=== PATIENT | male | born 1970 | race Caucasian/White ===

== ENCOUNTER 2018-02-14 06:38 | Observation (INO) | payer BC ==
--- OUTSIDE RECORDS SUMMARY | 2018-02-14 06:40 | XMS REPORT | Continuity of Care Document ---
:1970 Author Organization Interface Problems Problem Status Onset Classification Date Comments Source Date Reported N20.0 - Active [facility] [place] [facility] Medications Medication Details Route Status Patient Ordering Order Source Instructions Provider Date Allergies, Adverse Reactions, Alerts Substance Category Reaction Severity Reaction Status Date Comments Source type Reported Immunizations Immunization Date Given Site Status Last Updated Comments Source Results Order Results Value Reference Date Interpretation Comments Source Name Range Renal Renal CT ABDOMEN WITHOUT IV CONTRAST 04/15 - [facility] /2015 - [facility] CT PELVIS WITHOUT IV CONTRAST [place] Read by: Faith Rae MD Dictated Date/time: 04/15/16 16:30 CLINICAL HISTORY: renal stones . Electronically Signed by: Faith Rae MD 04/15/16 16:32 FINAL REPORT COMPARISON STUDY: None . TECHNIQUE: Sequential axial images were obtained with a multi-detector helical CT without administration of intravenous iodinated contrast material. Oral contrast was not given.The reported DLP in mGy*cm is 700 . The lack of contrast limits detailed evaluation of the abdominal organs. FINDINGS: The visualized lung bases are clear. The non-contrast enhanced images of the liver, spleen, pancreas , gallbladder and adrenals are unremarkable. The kidneys are normal in appearance. There are no renal calculi. No evidence of ureteral calculi are seen. The stomach is unremarkable. The loops of small bowel and loops of colon are unremarkable. The appendix is normal . The bladder is unremarkable. There is no pelvic or abdominal lymphadenopathy. No ascites. No free air. The inguinal regions are unremarkable. The visualized bones are unremarkable. Evidence of prior disc fusion and laminectomies are noted with pedicle screw fixation in the lumbar spine at L4-5 and L5-S1 levels. IMPRESSION: Unremarkable non-contrast abdominal and pelvis CT. Vital Signs Vital Sign Value Date Comments Source Encounters Location Location Encounter Encounter Reason Attending ADM DC Status Source Details Type Number For Provider Date Date Visit Outpatient [id number] JERED 11/30 Rashida [facility] [place] [id number] JERED [facility]/01 [facility] [place] [facility] [id number] JERED 12/14 [facility] [place] [facility] [id number] SHARRONE 12/18 [facility] [place] [facility] [id number] SAMIRA 03/18 [facility] [place] [facility] [id number] SAMIRA 04/08 [facility] [place] [facility] [id number] Samira 04/15 04/16 [facility] [place] [facility] [id number] DEVAN 05/28 [facility] [id number] SHARRONE 06/21 [facility] [place] [facility] [id number] 08/16 [facility] [place] [facility] [id number] DEVAN 09/03 [facility] [place] [facility] [id number] NELIDA WHITING 02/04 [facility] [id number] DEVAN 02/04 [facility] [place] [facility] [id number] DEVAN 02/10 [facility] [place] [facility] [id number] SHAR02/18 [facility] [place] [facility] [id number] SHARRONE 03/30 [facility] [place] [facility] [id number] DEVAN 07/20 [facility] [place] [facility] [id number] SHARRONE 08/25 [facility] [place] [facility] [id number] DEVAN 08/31 [facility] [id number] DEVAN 10/10 [facility] [place] [facility] [id number] DEVAN 01/23 [facility] [place] [facility] [id number] DEVAN 07/20 [facility] Procedures Procedure Code Date Perfomer Comments Source
--- OUTSIDE RECORDS SUMMARY | 2018-02-14 06:41 | XMS REPORT | Summary of Care ---
:1970 Author Organization [facility] [place] Address [address] [id number]- [facility] Encntr_alias(FIN) [id number] Date(s): 04/15/16 - 04/15/16 [facility] [place] [id number] [place] [id number] [place] [address] Discharge Disposition: Home or Self Care Attending Physician: Jaret Yarbrough MD Vital Signs No data available for this section Problem List No data available for this section Allergies, Adverse Reactions, Alerts No data available for this section Medications No data available for this section Results No data available for this section Immunizations No data available for this section Procedures No data available for this section Social History No data available for this section Assessment and Plan No data available for this section
[2018-02-14 07:38] LABS: Absolute Lymphocytes (CBC) 2.2 K/uL (0.7-4.9); Absolute Monocytes 0.4 K/uL (0.1-1.3); Absolute Neutrophil 2.8 K/uL (1.8-8.0); Basophils % 1.3 % (0-1.3); Eosinophils % 1.6 % (0-4.4); Hematocrit 45.1 % (39.6-49.0); Lymphocytes % 38.8 % (15.3-44.8); MCH 29.3 pg (27.0-35.0); MCV 87.2 fL (80-100); MPV 11.2 fL (7.6-11.3); Monocytes % 7.4 % (3.3-12.3); RBC Red Blood Cell Count 5.17 M/uL (4.33-5.43)
[2018-02-14 07:48] LABS: Protime INR 0.96
--- NOTE | 2018-02-14 07:54 | RAD REPORT ---
EXAM DESCRIPTION: CT - Head Brain Wo Cont - 02/14/2018 7:36 am CLINICAL HISTORY: Right leg numbness COMPARISON: None. TECHNIQUE: Computed axial tomography of the head was obtained. IV contrast was not requested. All CT scans are performed using dose optimization technique as appropriate and may include automated exposure control or mA/KV adjustment according to patient size. FINDINGS: An intracranial bleed is not seen . The ventricles are normal in caliber. No extra-axial fluid collection is noted. Fluid within the sinuses/ mastoids is not seen. IMPRESSION: No acute intracranial abnormality is seen. If patient's symptoms persist MRI of the bra in would be recommended.
[2018-02-14 07:55] LABS: ALT/SGPT 32 U/L (12-78); AST/SGOT 25 U/L (15-37); Alkaline Phosphatase 56 U/L (45-117); BUN Blood Urea Nitrogen 25 mg/dL (7-18); Bicarbonate 29 mmol/L (21-32); Bilirubin Direct < 0.1 mg/dL (0-0.2); Bilirubin Total 0.3 mg/dL (0.2-1.0); CKMB Creatine Kinase MB 2.2 ng/mL (0.3-3.6); Creatine Phosphokinase 278 U/L (39-308); Glucose Level 90 mg/dL (74-106); Magnesium 2.5 mg/dL (1.8-2.4); NT PRO-BNP 21 pg/mL (<125); Potassium 4.5 mmol/L (3.5-5.1); Protein, Total 7.4 g/dL (6.4-8.2); Sodium Level 140 mmol/L (136-145)
--- NOTE | 2018-02-14 08:10 | EDPHYS ---
Physician Documentation [facility] Name: Andrea Ortiz Age: 47 yrs Sex: Male : 1970 Arrival Date: 02/14/2018 Time: 06:43 Bed 13 Private MD: Filipe Domínguez M ED Physician Dylon Sutton HPI: 02/14 07:33 This 47 yrs old Male presents to ER via Wheelchair with complaints of snw Numbness Of Arm, Numbness. 07:33 The patient or guardian complains of pain, numbness. The complaints affect the right snw shoulder and up right lateral neck, down back of right arm. Context: The problem was sustained at home, resulted from unknown cause. Onset: The symptoms/episode began/occurred suddenly, 5 day(s) ago, and became persistent. Treatment prior to arrival includes: no previous treatment. Modifying factors: The symptoms are alleviated by nothing. Associated signs and symptoms: Pertinent positives: numbness, Pertinent negatives: fever, weakness. Severity of symptoms: At their worst the symptoms were moderate, in the emergency department the symptoms are unchanged. The patient has not experienced similar symptoms in the past. The patient has not recently seen a physician, and does not have an established primary care provider. takes medications for GERD, HTN, Hyperlipidemia (stopped taking and went more holistic). Historical: - Allergies: 07:04 No Known Allergies; bs1 - Home Meds: 07:04 testosterone shots , biweekly [Active]; citalopram 40 mg tab 1 tab once daily [Active]; bs1 fenofibrate 50 mg Oral cap 1 cap once daily [Active]; Fish Oil 183.3 mg-75 mg -91.6 mg-306 mg Oral cap [Active]; losartan 100 mg Oral tab 1 tab once daily [Active]; Lyrica 75 mg Oral [Active]; Multiple Vitamins Oral tab [Active]; omeprazole 40 mg Oral cpDR 1 cap once daily [Active]; Melatonin Oral [Active]; zyxal [Active]; D3-2000 oral oral [Active]; adapta [Active]; - PMHx: 07:04 hiatial hernia; Hypertension; High Cholesterol; GERD; Arthritis; Depression; bs1 - PSHx: 07:04 inguinal hernia repair; Tonsillectomy; bs1 - Immunization history:: Adult Immunizations up to date. - Social history:: Smoking status: Patient uses tobacco products, denies chronic smoking, but will smoke occasionally. - Ebola Screening: : Patient negative for fever greater than or equal to 101.5 degrees Fahrenheit, and additional compatible Ebola Virus Disease symptoms Patient denies exposure to infectious person. ROS: 07:22 Constitutional: Negative for fever, chills, and weight loss, Eyes: Negative for injury, snw pain, redness, and discharge, ENT: Negative for injury, pain, and discharge, Cardiovascular: Negative for chest pain, palpitations, and edema, Respiratory: Negative for shortness of breath, cough, wheezing, and pleuritic chest pain, Abdomen/GI: Negative for abdominal pain, nausea, vomiting, diarrhea, and constipation, Back: Negative for injury and pain, : Negative for injury, bleeding, discharge, and swelling, MS/Extremity: Negative for injury and deformity, Skin: Negative for injury, rash, and discoloration. 07:22 Neck: Positive for tenderness, of the right posterior aspect of neck. 07:22 Neuro: Positive for numbness, pain behind right shoulder and down back of right arm intermittently with numbness since Tuesday and then today with increased numbness to right leg, full power.. Exam: 07:22 Constitutional: This is a well developed, well nourished patient who is awake, alert, snw and in no acute distress. Head/Face: Normocephalic, atraumatic. Eyes: Pupils equal round and reactive to light, extra-ocular motions intact. Lids and lashes normal. Conjunctiva and sclera are non-icteric and not injected. Cornea within normal limits. Periorbital areas with no swelling, redness, or edema. ENT: Nares patent. No nasal discharge, no septal abnormalities noted. Tympanic membranes are normal and external auditory canals are clear. Oropharynx with no redness, swelling, or masses, exudates, or evidence of obstruction, uvula midline. Mucous membranes moist. Neck: Trachea midline, no thyromegaly or masses palpated, and no cervical lymphadenopathy. Supple, full range of motion without nuchal rigidity, or vertebral point tenderness. No Meningismus. Chest/axilla: Normal chest wall appearance and motion. Nontender with no deformity. No lesions are appreciated. Cardiovascular: Regular rate and rhythm with a normal S1 and S2. No gallops, murmurs, or rubs. Normal PMI, no JVD. No pulse deficits. Respiratory: Lungs have equal breath sounds bilaterally, clear to auscultation and percussion. No rales, rhonchi or wheezes noted. No increased work of breathing, no retractions or nasal flaring. Abdomen/GI: Soft, non-tender, with normal bowel sounds. No distension or tympany. No guarding or rebound. No evidence of tenderness throughout. Back: No spinal tenderness. No costovertebral tenderness. Full range of motion. Skin: Warm, dry with normal turgor. Normal color with no rashes, no lesions, and no evidence of cellulitis. MS/ Extremity: Pulses equal, no cyanosis. Neurovascular intact. Full, normal range of motion. Neuro: Awake and alert, GCS 15, oriented to person, place, time, and situation. Cranial nerves II-XII grossly intact. Motor strength 5/5 in all extremities. Sensory grossly intact. Cerebellar exam normal. Normal gait. Psych: Awake, alert, with orientation to person, place and time. Behavior, mood, and affect are within normal limits. Vital Signs: 06:52 BP 153 / 91; Pulse 66; Resp 16; Temp 98.3; Pulse Ox 100% on R/A; Weight 95.25 kg (R); bs1 Height 5 ft. 9 in. (175.26 cm); Pain 7/10; 08:00 BP 145 / 91; Pulse 65; Resp 17; Pulse Ox 100% on R/A; Pain 7/10; rb1 09:00 BP 132 / 74; Pulse 60; Resp 16; Pulse Ox 100% ; rb1 10:00 BP 134 / 78; Pulse 60; Resp 19; Pulse Ox 99% on R/A; Pain 5/10; rb1 11:00 rb1 06:52 Body Mass Index 31.01 (95.25 kg, 175.26 cm) bs1 11:00 Pt. is in MRI rb1 NIH Stroke Scale Scores: 07:00 NIHSS Score: 0 bs1 07:22 NIHSS Score: 0 snw MDM: 06:56 Patient medically screened. snw 07:32 Data reviewed: vital signs, nurses notes. Data interpreted: Pulse oximetry: on room air snw is 100 %. Interpretation: normal. Counseling: I had a detailed discussion with the patient and/or guardian regarding: the historical points, exam findings, and any diagnostic results supporting the discharge/admit diagnosis, the presence of at least one elevated blood pressure reading (>120/80) during this emergency department visit, lab results, radiology results, the need for further work-up and treatment in the hospital. ED course: pt is not candidate for TPA, outside window, resolution and exacerbation of symptoms. 08:09 Physician consultation: Lionel Ruffin DO was called at 07:45, was contacted at 07:45, snw regarding admission, to the telemetry unit. 02/14 06:45 Order name: Basic Metabolic Panel; Complete Time: 08:00 snw 02/14 06:45 Order name: CBC with Diff; Complete Time: 08:00 snw 02/14 06:45 Order name: Ckmb; Complete Time: 08:00 snw 02/14 06:45 Order name: CPK; Complete Time: 08:00 snw 02/14 06:45 Order name: LFT's; Complete Time: 08:00 snw 02/14 06:45 Order name: Magnesium; Complete Time: 08:00 snw 02/14 06:45 Order name: NT PRO-BNP; Complete Time: 08:00 snw 02/14 06:45 Order name: PT-INR; Complete Time: 08:00 snw 02/14 06:45 Order name: Ptt, Activated; Complete Time: 08:00 snw 02/14 06:45 Order name: Troponin (emerg Dept Use Only); Complete Time: 08:00 snw 02/14 06:45 Order name: XRAY Chest (1 view); Complete Time: 09:41 snw 02/14 10:28 Order name: Urine Dipstick--Ancillary (enter results) bd 02/14 10:39 Order name: Urine Dipstick-Ancillary; Complete Time: 10:41 EDMS 02/14 06:45 Order name: EKG; Complete Time: 06:46 snw 02/14 06:45 Order name: Cardiac monitoring; Complete Time: 07:30 snw 02/14 06:45 Order name: EKG - Nurse/Tech; Complete Time: 09:28 snw 02/14 07:07 Order name: CT Head Brain wo Cont; Complete Time: 08:00 snw 02/14 10:53 Order name: US; Complete Time: 10:53 EDMS 02/14 11:17 Order name: US; Complete Time: 11:18 EDMS 02/14 06:45 Order name: IV Saline Lock; Complete Time: 07:30 snw 02/14 06:45 Order name: Labs collected and sent; Complete Time: 07:30 snw 02/14 06:45 Order name: O2 Per Protocol; Complete Time: 07:30 snw 02/14 06:45 Order name: O2 Sat Monitoring; Complete Time: 07:30 snw 02/14 06:45 Order name: Urine Dipstick-Ancillary (obtain specimen); Complete Time: 10:24 snw Administered Medications: 06:46 CANCELLED (Duplicate Order): Lasix 40 mg IVP once snw 06:46 CANCELLED (Duplicate Order): Albuterol - atroVENT (3:1) (2.5 mg - 0.5 mg) 3 ml snw Nebulizer once 06:47 CANCELLED (Duplicate Order): Nitroglycerin Ointment 2 % 1 inches Transdermal once snw 06:47 CANCELLED (Duplicate Order): Aspirin Chewable Tablet 324 mg PO once; 81 mg tablets x 4 snw 06:47 CANCELLED (Duplicate Order): morphine 4 mg IVP once snw 08:15 Drug: Aspirin Chewable Tablet 324 mg Route: PO; rb1 08:40 Follow up: Response: No adverse reaction rb1 09:10 Drug: NS 0.9% 1000 ml Route: IV; Rate: 1 bolus; Site: left antecubital; rb1 10:12 Follow up: IV Status: Completed infusion rb1 10:33 Drug: Ativan 1 mg Route: IVP; Site: left antecubital; mb3 10:36 Follow up: Pt. was given the medication and was taken to MRI. rb1 Disposition: 02/14/18 08:09 Hospitalization ordered by Lionel Ruffin for Inpatient Admission. Preliminary diagnosis are Renal insufficiency, Paresthesia of skin. - Bed requested for Telemetry/MedSurg (Inpatient). - Status is Inpatient Admission. rb1 - Condition is Stable. - Problem is new. - Symptoms are unchanged. UTI on Admission? No NIH Stroke Scale - NIH Stroke Score Date: 02/14/2018 Time: 07:00 Total Score = 0 1a. Level of Consciousness (LOC) - 0(Alert) 1b. Level of Consciousness (LOC) (Year \T\ Age) - 0(Both) 1c. LOC Commands (Open \T\ Closes Eyes/Pumper Gauger Apprentice) - 0(Both) 2. Best Gaze (Lateral Gaze Paresis) - 0(Normal) 3. Visual Field Loss - 0(No visual loss) 4. Facial Palsy - 0(Normal) 5a. Left Arm: Motor (10-second hold) - 0(No drift) 5b. Right Arm: Motor (10-second hold) - 0(No drift) 6a. Left Leg: Motor (5-second hold - always test supine) - 0(No drift) 6b. Right Leg: Motor (5-second hold - always test supine) - 0(No drift) 7. Limb Ataxia (finger/nose \T\ heel/campa - test with eyes open) - 0(Absent) 8. Sensory Loss (pinprick arms/legs/face) - 0(Normal) 9. Best Language: Aphasia (description/naming/reading) - 0(No aphasia) 10. Dysarthria (speech clarity - read or repeat words) - 0(Normal) 11. Extinction and Inattention (visual/tactile/auditory/spatial/personal) - 0(No abnormality) Initials: bs1 NIH Stroke Scale - NIH Stroke Score Date: 02/14/2018 Time: 07:22 Total Score = 0 1a. Level of Consciousness (LOC) - 0(Alert) 1b. Level of Consciousness (LOC) (Year \T\ Age) - 0(Both) 1c. LOC Commands (Open \T\ Closes Eyes/Pumper Gauger Apprentice) - 0(Both) 2. Best Gaze (Lateral Gaze Paresis) - 0(Normal) 3. Visual Field Loss - 0(No visual loss) 4. Facial Palsy - 0(Normal) 5a. Left Arm: Motor (10-second hold) - 0(No drift) 5b. Right Arm: Motor (10-second hold) - 0(No drift) 6a. Left Leg: Motor (5-second hold - always test supine) - 0(No drift) 6b. Right Leg: Motor (5-second hold - always test supine) - 0(No drift) 7. Limb Ataxia (finger/nose \T\ heel/campa - test with eyes open) - 0(Absent) 8. Sensory Loss (pinprick arms/legs/face) - 0(Normal) 9. Best Language: Aphasia (description/naming/reading) - 0(No aphasia) 10. Dysarthria (speech clarity - read or repeat words) - 0(Normal) 11. Extinction and Inattention (visual/tactile/auditory/spatial/personal) - 0(No abnormality) Initials: snw Signatures: Dispatcher [employer] EDMS Cyndy Wilcox Cha Matthews, Mary Villarreal RN, ENVIRONMENTAL PROGRAM MANAGER-C ENVIRONMENTAL PROGRAM MANAGER-Csnw Lexus Szymanski, RN RN rb1 Dylon Sutton MD MD Stella Webster RN RN bs1 Los Martini RN RN mb3 Corrections: (The following items were deleted from the chart) 06:46 06:45 Lasix 40 mg IVP once ordered. snw snw 06:46 06:45 Albuterol - atroVENT (3:1) (2.5 mg - 0.5 mg) 3 ml Nebulizer once ordered. snw snw 06:47 06:45 Nitroglycerin Ointment 2 % 1 inches Transdermal once ordered. snw snw 06:47 06:45 Aspirin Chewable Tablet 324 mg PO once; 81 mg tablets x 4 ordered. snw snw 06:47 06:45 morphine 4 mg IVP once ordered. snw snw 07:37 06:45 Gann ordered. snw snw 07:37 06:45 Misc. Order ordered. snw snw 07:37 06:45 BiPap ([employer] Only)+[id number] ordered. EDVT EDMS 10:01 08:09 Hospitalization Ordered by Lionel Ruffin DO for Inpatient Admission. bd Preliminary diagnosis is Renal insufficiency; Paresthesia of skin. Bed requested for Telemetry/MedSurg (Inpatient). Status is Inpatient Admission. Condition is Stable. Problem is new. Symptoms are unchanged. UTI on Admission? No. snw 10:01 10:02/14/2018 08:09 Hospitalization Ordered by Lionel Ruffin DO for dw Inpatient Admission. Preliminary diagnosis is Renal insufficiency; Paresthesia of skin. Bed requested for Telemetry/MedSurg (Inpatient). Status is Inpatient Admission. Condition is Stable. Problem is new. Symptoms are unchanged. UTI on Admission? No. bd 12:05 10:01 02/14/2018 08:09 Hospitalization Ordered by Lionel Ruffin DO for rb1 Inpatient Admission. Preliminary diagnosis is Renal insufficiency; Paresthesia of skin. Bed requested for Telemetry/MedSurg (Inpatient). Status is Inpatient Admission. Condition is Stable. Problem is new. Symptoms are unchanged. UTI on Admission? No. dw
--- NOTE | 2018-02-14 08:10 | ER ---
Nurse's Notes [facility] Name: Andrea Ortiz Age: 47 yrs Sex: Male : 1970 Arrival Date: 02/14/2018 Time: 06:43 Bed 13 Private MD: Filipe Domínguez M Diagnosis: Renal insufficiency;Paresthesia of skin Presentation: 02/14 06:52 Presenting complaint: Patient states: "I have been having pain behind my right shoulder bs1 blade since last Tuesday, about an hour ago my right leg went numb and I couldn't really walk on it." Reports tingling to right hand. Transition of care: patient was not received from another setting of care. Onset of symptoms was February 10, 2018. Risk Assessment: Do you want to hurt yourself or someone else? Patient reports no desire to harm self or others. Initial Sepsis Screen: Does the patient meet any 2 criteria? No. Patient's initial sepsis screen is negative. Does the patient have a suspected source of infection? No. Patient's initial sepsis screen is negative. Care prior to arrival: None. 06:52 Method Of Arrival: Wheelchair bs1 06:52 Acuity: AYANNA 3 bs1 Triage Assessment: 06:55 General: Appears in no apparent distress. uncomfortable, Behavior is cooperative, bs1 anxious. Pain: Complains of pain in right shoulder blade. Neuro: Level of Consciousness is awake, alert, obeys commands, Oriented to person, place, time, situation, Appropriate for age Nurse Coordinator are equal bilaterally Moves all extremities. Full function Speech is normal, Facial symmetry appears normal, Pupils are PERRLA, Intact reports some tingling to right hand. Historical: - Allergies: 07:04 No Known Allergies; bs1 - Home Meds: 07:04 testosterone shots , biweekly [Active]; citalopram 40 mg tab 1 tab once daily [Active]; bs1 fenofibrate 50 mg Oral cap 1 cap once daily [Active]; Fish Oil 183.3 mg-75 mg -91.6 mg-306 mg Oral cap [Active]; losartan 100 mg Oral tab 1 tab once daily [Active]; Lyrica 75 mg Oral [Active]; Multiple Vitamins Oral tab [Active]; omeprazole 40 mg Oral cpDR 1 cap once daily [Active]; Melatonin Oral [Active]; zyxal [Active]; D3-2000 oral oral [Active]; adapta [Active]; - PMHx: 07:04 hiatial hernia; Hypertension; High Cholesterol; GERD; Arthritis; Depression; bs1 - PSHx: 07:04 inguinal hernia repair; Tonsillectomy; bs1 - Immunization history:: Adult Immunizations up to date. - Social history:: Smoking status: Patient uses tobacco products, denies chronic smoking, but will smoke occasionally. - Ebola Screening: : Patient negative for fever greater than or equal to 101.5 degrees Fahrenheit, and additional compatible Ebola Virus Disease symptoms Patient denies exposure to infectious person. Screenin:05 Abuse screen: Denies threats or abuse. Denies injuries from another. Nutritional bs1 screening: No deficits noted. Tuberculosis screening: No symptoms or risk factors identified. Fall Risk None identified. Assessment: 07:00 General: Appears in no apparent distress. comfortable, Behavior is calm, cooperative, rb1 Denies fever. Pain: Complains of pain in left posterior aspect of neck Pain radiates to right shoulder Pain currently is 7 out of 10 on a pain scale. Neuro: Level of Consciousness is awake, alert, obeys commands, Oriented to person, place, time, situation, Nurse Coordinator are equal bilaterally Moves all extremities. Gait is steady, Speech is normal, Facial symmetry appears normal, Pupils are PERRLA. Cardiovascular: Capillary refill < 3 seconds is brisk in bilateral fingers. Respiratory: Airway is patent Respiratory effort is even, unlabored, Respiratory pattern is regular, symmetrical. GI: No signs and/or symptoms were reported involving the gastrointestinal system. : No signs and/or symptoms were reported regarding the genitourinary system. Derm: Skin is pink, warm \\T\\ dry. Musculoskeletal: Range of motion: intact in all extremities. 07:08 Reassessment: Report given to ALESHA Alberts. Informed Mary PISANO that nurse did the stroke bs1 assessment. No abnormalities noted. No slurred speech. 07:13 Reassessment: Patients PCP is Ken beltran [facility] at [address] bs1 08:00 Reassessment: Patient appears in no apparent distress at this time. No changes from rb1 previously documented assessment. at bedside. 09:00 Reassessment: Patient appears in no apparent distress at this time. Patient and/or rb1 family updated on plan of care and expected duration. Pain level reassessed. Patient is alert, oriented x 3, equal unlabored respirations, skin warm/dry/pink. 10:00 Reassessment: Patient appears in no apparent distress at this time. Patient and/or rb1 family updated on plan of care and expected duration. Pain level reassessed. Patient is alert, oriented x 3, equal unlabored respirations, skin warm/dry/pink. US is at bedside. 10:15 Reassessment: Tried to call report but was left on hold. Spoke to Priti, Unit rb1 secretary [employer]. 10:20 Reassessment: Tried to call report but was left on hold, spoke to Priti, Unit rb1 secretary board of commissioners. 10:25 Reassessment: Gave report to ALESHA Ramirez. Information from [facility] was given, all questions rb1 asked and answered. 10:38 Reassessment: Pt. went to MRI from the ED; 4 th floor notified. rb1 11:30 Reassessment: Pt. is still in MRI. at bedside. rb1 11:58 Reassessment: Patient appears in no apparent distress at this time. Pt. is back from [facility] MRI. Pt. will be transferred to the floor. Vital Signs: 06:52 BP 153 / 91; Pulse 66; Resp 16; Temp 98.3; Pulse Ox 100% on R/A; Weight 95.25 kg (R); bs1 Height 5 ft. 9 in. (175.26 cm); Pain 7/10; 08:00 BP 145 / 91; Pulse 65; Resp 17; Pulse Ox 100% on R/A; Pain 7/10; rb1 09:00 BP 132 / 74; Pulse 60; Resp 16; Pulse Ox 100% ; rb1 10:00 BP 134 / 78; Pulse 60; Resp 19; Pulse Ox 99% on R/A; Pain 5/10; rb1 11:00 rb1 06:52 Body Mass Index 31.01 (95.25 kg, 175.26 cm) bs1 11:00 Pt. is in MRI [facility] NIH Stroke Scale Scores: 07:00 NIHSS Score: 0 bs1 07:22 NIHSS Score: 0 [facility] ED Course: 06:43 Patient arrived in ED. es 06:43 Filipe Domínguez MD is Private Physician. es 06:46 Mary Hester FNP-C [facility]. snw 06:46 Dylon Sutton MD is Attending Physician. snw 06:52 Stella Webster, ALESHA is Primary Nurse. bs1 06:55 Triage completed. bs1 07:05 X-ray completed. Portable x-ray completed in exam room. Patient tolerated procedure jb2 well. 07:05 Patient has correct armband on for positive identification. Bed in low position. Call bs1 light in reach. Side rails up X 1. Pulse ox on. NIBP on. 07:05 Arm band placed on right wrist. rb1 07:[address] sw 07:13 XRAY Chest (1 view) In Process Unspecified. EDMS 07:15 Inserted saline lock: 22 gauge in left antecubital area, using aseptic technique. Blood rb1 collected. 07:30 Lexus Szymanski, RN is Primary Nurse. rb1 07:[address] via stretcher. sw 07:34 CT completed. sw 07:36 Patient moved back from CT. sw 07:36 CT Head Brain wo Cont In Process Unspecified. EDMS 08:05 Lionel Ruffin DO is Hospitalizing Provider. snw 09:18 EKG done, by charge preparation technician. reviewed by Mary ESPINOSA. at1 11:24 Patient moved to MRI via wheelchair. lc 11:56 Patient moved back from MRI. lc 12:01 No provider procedures requiring assistance completed. rb1 12:01 Patient admitted, IV remains in place. rb1 Administered Medications: 06:46 CANCELLED (Duplicate Order): Lasix 40 mg IVP once snw 06:46 CANCELLED (Duplicate Order): Albuterol - atroVENT (3:1) (2.5 mg - 0.5 mg) 3 ml snw Nebulizer once 06:47 CANCELLED (Duplicate Order): Nitroglycerin Ointment 2 % 1 inches Transdermal once snw 06:47 CANCELLED (Duplicate Order): Aspirin Chewable Tablet 324 mg PO once; 81 mg tablets x 4 snw 06:47 CANCELLED (Duplicate Order): morphine 4 mg IVP once snw 08:15 Drug: Aspirin Chewable Tablet 324 mg Route: PO; rb1 08:40 Follow up: Response: No adverse reaction rb1 09:10 Drug: NS 0.9% 1000 ml Route: IV; Rate: 1 bolus; Site: left antecubital; rb1 10:12 Follow up: IV Status: Completed infusion rb1 10:33 Drug: Ativan 1 mg Route: IVP; Site: left antecubital; mb3 10:36 Follow up: Pt. was given the medication and was taken to MRI. rb1 Intake: Outcome: 08:09 Decision to Hospitalize by Provider. snw 12:01 Admitted to Tele accompanied by tech, family with patient, via wheelchair, room 411, rb1 with chart, Report called to ALESHA Ramirez 12:01 Condition: stable 12:01 Instructed on the need for admit. 12:01 Patient left the ED. rb1 NIH Stroke Scale - NIH Stroke Score Date: 02/14/2018 Time: 07:00 Total Score = 0 1a. Level of Consciousness (LOC) - 0(Alert) 1b. Level of Consciousness (LOC) (Year \\T\\ Age) - 0(Both) 1c. LOC Commands (Open \\T\\ Closes Eyes/Manager Call Center) - 0(Both) 2. Best Gaze (Lateral Gaze Paresis) - 0(Normal) 3. Visual Field Loss - 0(No visual loss) 4. Facial Palsy - 0(Normal) 5a. Left Arm: Motor (10-second hold) - 0(No drift) 5b. Right Arm: Motor (10-second hold) - 0(No drift) 6a. Left Leg: Motor (5-second hold - always test supine) - 0(No drift) 6b. Right Leg: Motor (5-second hold - always test supine) - 0(No drift) 7. Limb Ataxia (finger/nose \\T\\ heel/campa - test with eyes open) - 0(Absent) 8. Sensory Loss (pinprick arms/legs/face) - 0(Normal) 9. Best Language: Aphasia (description/naming/reading) - 0(No aphasia) 10. Dysarthria (speech clarity - read or repeat words) - 0(Normal) 11. Extinction and Inattention (visual/tactile/auditory/spatial/personal) - 0(No abnormality) Initials: bs1 NIH Stroke Scale - NIH Stroke Score Date: 02/14/2018 Time: 07:22 Total Score = 0 1a. Level of Consciousness (LOC) - 0(Alert) 1b. Level of Consciousness (LOC) (Year \\T\\ Age) - 0(Both) 1c. LOC Commands (Open \\T\\ Closes Eyes/Manager Call Center) - 0(Both) 2. Best Gaze (Lateral Gaze Paresis) - 0(Normal) 3. Visual Field Loss - 0(No visual loss) 4. Facial Palsy - 0(Normal) 5a. Left Arm: Motor (10-second hold) - 0(No drift) 5b. Right Arm: Motor (10-second hold) - 0(No drift) 6a. Left Leg: Motor (5-second hold - always test supine) - 0(No drift) 6b. Right Leg: Motor (5-second hold - always test supine) - 0(No drift) 7. Limb Ataxia (finger/nose \\T\\ heel/campa - test with eyes open) - 0(Absent) 8. Sensory Loss (pinprick arms/legs/face) - 0(Normal) 9. Best Language: Aphasia (description/naming/reading) - 0(No aphasia) 10. Dysarthria (speech clarity - read or repeat words) - 0(Normal) 11. Extinction and Inattention (visual/tactile/auditory/spatial/personal) - 0(No abnormality) Initials: snw Signatures: Dispatcher [employer] EDMS Mary Hester, COTTON EXPERT-C COTTON EXPERT-Csnw Lindsey Keith Jesse jb2 Zahra Alberto Amanda, plant protection superintendent EKG Tat1 Cinthya Gannon Rebecca, RN RN rb1 Stella Webster RN RN bs1 Los Martini RN RN mb3 Corrections: (The following items were deleted from the chart) 07:06 06:52 Presenting complaint: Patient states: "I have been having pain behind my bs1 right shoulder blade since last Tuesday, about an hour ago my right leg went numb and I couldn't really walk on it." bs1 12:05 12:05 Patient left the ED. rb1 rb1
[2018-02-14] MEDS ORDERED: ASPIRIN 81 MG CHEWABLE TABLET ONE (08:14)
[2018-02-14] MEDS ORDERED: ONDANSETRON 4 MG/2 ML VIAL IV PRN (08:47)
[2018-02-14] MEDS ORDERED: ACETAMINOPHEN 650MG/RECT SUPP PR PRN (08:47)
[2018-02-14] MEDS ORDERED: ACETAMINOPHEN 500 MG TAB PO PRN (08:47)
[2018-02-14] MEDS ORDERED: LORazepam 2 MG/ML VIAL IV PRN (08:47)
[2018-02-14] MEDS: CITALOPRAM 10 MG TABLET PO SCH ×2 (09:00→12:35)
[2018-02-14] MEDS: PREGABALIN 50 MG CAP PO SCH ×3 (09:00→21:19)
[2018-02-14] MEDS ORDERED: NA CHLORIDE 0.9% 1,000 ML ONE (09:10)
--- NOTE | 2018-02-14 09:38 | RAD REPORT ---
EXAM DESCRIPTION: Young Single View02/14/2018 7:13 am CLINICAL HISTORY: Shortness of breath COMPARISON: August 2017 FINDINGS: The lungs appear clear of acute infiltrate. The heart is normal size IMPRESSION: No acute abnormalities displayed
[2018-02-14] MEDS ORDERED: LORazepam 2 MG/ML VIAL ONE (10:33)
[2018-02-14 10:38] LABS: Urine Blood TRACE (NEG); Urine Glucose NEGATIVE (NEG); Urine Protein NEGATIVE (NEG); Urine pH 5.5 (5.0-7.0)
--- NOTE | 2018-02-14 10:52 | RAD REPORT ---
EXAM DESCRIPTION: US - Renal Ultrasound-Complete - 02/14/2018 10:13 am CLINICAL HISTORY: Renal insufficiency COMPARISON: None. FINDINGS: The right kidney measures 11.5 x 6.6 x 4.9 cm. The left kidney measures 11.7 x 5.6 x 4.7 cm. Cortical thickness is normal. Both kidneys show an increase in cortical echogenicity that can be seen with medical renal disease. No hydronephrosis or suspicious renal mass. A few punctate echogenic foci in each renal hilum noted. These are probably areas of echogenic fat rather than nonshadowing s tones. No bladder wall thickening or mass. No intraluminal stone or mass. IMPRESSION: No hydronephrosis or suspicious renal mass. Increased renal cortical echogenicity suspicious for medical renal disease.
--- NOTE | 2018-02-14 11:15 | RAD REPORT ---
EXAM DESCRIPTION: TORRES - ERIC - 02/14/2018 10:14 am CLINICAL HISTORY: Hypertension, right-sided paresthesia, CVA symptoms COMPARISON: None. TECHNIQUE: Real-time sonographic evaluation of both carotid systems was performed. Grayscale and Dop pler interrogation was performed with waveform tracing bilaterally. FINDINGS: Normal high resistance waveforms are noted in both external carotid arteries. The common c arotid arteries and internal carotid arteries show normal low resistance waveforms. Bilateral carotid bulb plaquing changes are present. On visual inspection no significant degree of kirsty lauri narrowing seen. No dissection identified. Peak systolic and end diastolic velocity values and t he ICA/CCA ratios are in the non-hemodynamically significant range. Common carotid artery velocity values are symmetric at 74 cm/second. Right ICA velocity range from 46 -54 cm/second. Left internal carotid velocity value range from 39-66 cm/second. ICA/CCA ratios are no rmal at 0.7 on the right and 0.9 on the left. Antegrade flow seen in both vertebral arteries. Velocity values and ratios were recorded and are retained in the patient's imaging records. IMPRESSION: No significant atherosclerotic changes noted. No evidence of a hemodynamically significant stenosis.
--- NOTE | 2018-02-14 12:14 | EKG ---
Test Date: 2018-02-14 Test Time: 07:57:04 Slubber Runner: FAWN MEASUREMENT RESULTS: Intervals: Rate: 65 DE: 154 QRSD: 110 QT: 392 QTc: 407 [place]: P: 49 DE: 154 QRS: 6 T: 25 INTERPRETIVE STATEMENTS: Normal sinus rhythm Normal ECG Compared to ECG 08/25/2017 16:26:39 No significant changes Electronically Signed On 02-14-18 12:11:48 CDT by Austen Bowen
--- NOTE | 2018-02-14 12:32 | RAD REPORT ---
EXAM DESCRIPTION: MRI - Stroke Protocol - 02/14/2018 11:56 am CLINICAL HISTORY: Right sided numbness since Tuesday COMPARISON: Head CT February 14, 2018 TECHNIQUE: Axial, sagittal and coronal magnetic resonance images of the brain were obtained. Magneti c resonance angiography of the head and neck was performed. Source images were reviewed and reconstr ucted at 360 degrees rotation. FINDINGS: A 6 millimeter area of high signal on T1 weighted sequences is present within the quadrige lauri cistern compatible with a lipoma. No additional abnormal signal within the brain is seen. An ex tra-axial fluid collection is not noted. Diffusion weighted/ADC mapping does not reveal evidence of an acute infarction. Fluid within the sinuses/mastoids is not seen. . The common, internal and external carotid arteries do not demonstrate a significant stenosis. The avery tebral arteries are unremarkable. The visualized anterior cerebral, middle cerebral, posterior cerebral, basilar and distal internal c arotid arteries do not demonstrate a significant stenosis. An aneurysm is not seen IMPRESSION: No acute intracranial abnormality is seen. Unremarkable MRA head and neck
[2018-02-14] MEDS: ENOXAPARIN 40 MG/0.4 ML SQ SCH (12:36)
[2018-02-14] MEDS: NA CHLORIDE 0.9% 1,000 ML IV SCH ×2 (12:37→19:04)
[2018-02-14] MEDS: HYDROCODONE/APAP 7.5/325 MG TAB PO PRN (12:50)
[2018-02-14] MEDS: TRAMADOL HCL 50 MG TAB PO PRN (14:17)
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
[2018-02-14 15:09] LABS: Thyroid Stimulating Hormone 1.59 uIU/mL (0.36-3.74)
--- NOTE | 2018-02-14 15:53 | P.HP ---
Certification for Inpatient Patient admitted to: Observation With expected LOS: <2 Midnights Patient will require the following post-hospital care: None Practitioner: I am a practitioner with admitting privileges, knowledge of patient current condition, hospital course, and medical plan of care. Services: Services provided to patient in accordance with Admission requirements found in Title 42 Section 412.3 of the Code of Federal Regulations Patient History Date of Service: 02/14/18 Primary Care Provider: Dr. Domínguez Reason for admission: Right upper and lower extremity paresthesias. History of Present Illness: 47 yo CM presented to the ER with right upper and lower ext. weakness and numbness. This all started on Tuesday when he noted pain to the right arm and neck region. This would radiate to the right scapula. 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 He was doing a lot of pushing and lifting last week. His condition worsened. Patient denied any headaches, dizziness, chest pain or shortness of breath. Symptoms worsened so he came to the emergency room for evaluation. In the ER he was evaluated. Some numbness to the upper and lower right extremities were noted. He also reported some weakness. Initial CT of the head was unremarkable. Creatinine was slightly elevated. He was admitted for further evaluation. Patient with acute, hyperlipidemia, GERD with hiatal hernia, RLS, Depression. When I saw the patient his weakness had improved. No chest pain, SOB, or dizziness was noted. He reports a significant medical history of back surgery. Allergies No Known Allergies Allergy (Unverified 08/25/17 18:53) Home medications list reviewed: Yes - Past Medical/Surgical History Has patient received pneumonia vaccine in the past: No Diabetic: No -: HTN -: GERD with Hiatal Hernia -: RLS -: Depression with anxiety -: Back surgery to L spine -: Tonsillectomy -: Left inguinal hernia Psychosocial/ Personal History: He is . 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 He has children - Family History Mother -: Cancer (Lung cancer) Father -: Cancer (Throat and lung cancer) - Social History Smoking Status: Never smoker Alcohol use: No CD- Drugs: No Caffeine use: Yes Place of Residence: Home Review of Systems General: Weakness, As per HPI Eyes: Unremarkable ENT: Unremarkable Respiratory: Unremarkable Cardiovascular: Unremarkable Gastrointestinal: Unremarkable Genitourinary: Unremarkable Musculoskeletal: As per HPI Integumentary: As per HPI Neurological: Weakness, Numbness, As per HPI Lymphatics: Unremarkable Physical Examination - Vital Signs Temperature: 97.3 F Blood Pressure: 127/82 Pulse: 66 Respirations: 18 Pulse Ox (%): 100 - Physical Exam General: Alert, In no apparent distress, Oriented x3, Cooperative HEENT: Atraumatic, Normocephalic, PERRLA, Mucous membr. moist/pink, EOMI Neck: Supple, No Thyromegaly Respiratory: Clear to auscultation bilaterally, Normal air movement Cardiovascular: Normal pulses, Regular rate/rhythm Gastrointestinal: Normal bowel sounds, Soft and benign, Non-distended, No tenderness, No masses, No rebound, No guarding Musculoskeletal: No erythema, No tenderness, No warmth Integumentary: No erythema, No warmth, No cyanosis Neurological: Normal speech, Cranial nerves 3-12 intact, Normal affect, Abnormal strength (Slight weakness to the right upper ext in comparison to the left. Some numbness noted as well. ) - Studies Laboratory Data (last 24 hrs) 02/14/18 07:15: PT 11.3, INR 0.96, APTT 33.2 02/14/18 07:15: WBC 5.6, Hgb 15.1, Hct 45.1, Plt Count 273 02/14/18 07:15: Sodium 140, Potassium 4.5, BUN 25 H, Creatinine 1.70 H, Glucose 90, Magnesium 2.5 H, Total Bilirubin 0.3, AST 25, ALT 32, Alkaline Phosphatase 56 Assessment and Plan - Problems (Diagnosis) (1) Weakness Current Visit: Yes Status: Acute Plan: Will need to assess for TIA. Will discuss with Neurology. Suspect radiculopathy to the C spine. Will order Stroke MRI/MRA, Carotid doppler, ECHO and MRI of C spine. Will continue with Stroke protocol medication. Lovenox, lipitor, and ASA started. (2) Paresthesia Current Visit: Yes Status: Acute Plan: To the Upper and lower ext. noted. Continue as above (3) Radiculopathy Current Visit: Yes Status: Acute Plan: Will order C spine MRI. Will discuss with Neurology (4) HTN (hypertension) Current Visit: Yes Status: Chronic Plan: Hold BP medication at this time. Will monitor. Qualifiers: Hypertension type: essential hypertension Qualified Code(s): I10 - Essential (primary) hypertension (5) Hiatal hernia with GERD Current Visit: Yes Status: Chronic Plan: Continue with medication. (6) Depression with anxiety Current Visit: Yes Status: Chronic Plan: Continue with medication (7) RLS (restless legs syndrome) Current Visit: Yes Status: Chronic Plan: Continue with medication (8) Chronic renal disease Current Visit: Yes Status: Suspected Plan: Will need to evaluate for CRD due to his HTN. Will check renal US Qualifiers: Chronic kidney disease stage: stage 2 (mild) Qualified Code(s): N18.2 - Chronic kidney disease, stage 2 (mild) Discharge Plan: Home Plan to discharge in: 24 Hours - Advance Directives Does patient have a Living Will: No Does patient have a Durable POA for Healthcare: No - Code Status/Comfort Care Code Status Assessed: Yes Time Spent Managing Pts Care (In Minutes): 55
[2018-02-14 16:13] VITALS: BMI 31.0
--- NOTE | 2018-02-14 17:04 | RAD REPORT ---
EXAM DESCRIPTION: MRI - C Spine Wo Cont - 02/14/2018 4:45 pm CLINICAL HISTORY: Right arm numbness since Tuesday. Right arm radiculopathy COMPARISON: None TECHNIQUE: Magnetic resonance imaging of the cervical spine was obtained with coronal and sagittal r econstruction FINDINGS: C2-3, C3-4 and C4-5 demonstrate no significant abnormality A 7 x 5 x 8 centimeter cc by AP by trans right paracentral disc herniation is present at C5-6 brian sing the spinal cord. Small disc bulge is present at C6-7. Small osteophytes are seen. Thecal sac measures millimeters 8 mm . Mild narrowing of the right neural foramina is seen. Minimal disc bulge is present at C7-T1 There is an equivocal tiny area of increased signal within the right anterior aspect of the spinal co rd at C5-6 which may represent a tiny area of myelomalacia IMPRESSION: Moderate right paracentral disc herniation C5-6 Spondylosis C6-7 resulting in mild central spinal stenosis
[2018-02-14 17:31] LABS: CKMB Creatine Kinase MB 2.2 ng/mL (0.3-3.6)
[2018-02-14] MEDS ORDERED: CITALOPRAM 10 MG TABLET PO SCH (21:00)
[2018-02-14] MEDS ORDERED: ATORVASTATIN 40 MG TAB PO SCH (21:00)
[2018-02-15 00:55] LABS: CKMB Creatine Kinase MB 2.2 ng/mL (0.3-3.6)
[2018-02-15] MEDS: HYDROCODONE/APAP 7.5/325 MG TAB PO PRN ×2 (02:39→10:59)
[2018-02-15] MEDS: NA CHLORIDE 0.9% 1,000 ML IV SCH (06:14)
[2018-02-15] MEDS ORDERED: PANTOPRAZOLE 40MG TABLET PO SCH (06:30)
[2018-02-15 06:34] LABS: Absolute Lymphocytes (CBC) 2.1 K/uL (0.7-4.9); Absolute Monocytes 0.5 K/uL (0.1-1.3); Absolute Neutrophil 4.4 K/uL (1.8-8.0); Basophils % 0.9 % (0-1.3); Eosinophils % 1.2 % (0-4.4); Hematocrit 41.7 % (39.6-49.0); Lymphocytes % 29.6 % (15.3-44.8); MCH 29.8 pg (27.0-35.0); MCV 87.2 fL (80-100); MPV 10.7 fL (7.6-11.3); Monocytes % 6.9 % (3.3-12.3); RBC Red Blood Cell Count 4.78 M/uL (4.33-5.43)
[2018-02-15 06:46] LABS: Magnesium 2.3 mg/dL (1.8-2.4); Potassium 4.3 mmol/L (3.5-5.1)
[2018-02-15] MEDS: TRAMADOL HCL 50 MG TAB PO PRN (08:53)
[2018-02-15] MEDS: PREGABALIN 50 MG CAP PO SCH (08:54)
[2018-02-15] MEDS: ENOXAPARIN 40 MG/0.4 ML SQ SCH (08:54)
[2018-02-15] MEDS ORDERED: ASPIRIN EC 81 MG TAB PO SCH (09:00)
[2018-02-15 09:10] VITALS: O2SAT 94
--- NOTE | 2018-02-15 11:13 | P.DS ---
Admission Date: 02/14/18 Discharge Date: 02/15/18 Primary Care Provider: Dr. Domínguez Disposition: ROUTINE DISCHARGE Discharge Condition: GOOD Reason for Admission: Right upper and lower extremity paresthesias. Consultations: Neurology-Dr. Major Procedures: C-spine MRI: COMPARISON: None TECHNIQUE: Magnetic resonance imaging of the cervical spine was obtained with coronal and sagittal reconstruction FINDINGS: C2-3, C3-4 and C4-5 demonstrate no significant abnormality A 7 x 5 x 8 centimeter cc by AP by trans right paracentral disc herniation is present at C5-6 compressing the spinal cord. Small disc bulge is present at C6-7. Small osteophytes are seen. Thecal sac measures millimeters 8 mm. Mild narrowing of the right neural foramina is seen. Minimal disc bulge is present at C7-T1 There is an equivocal tiny area of increased signal within the right anterior aspect of the spinal cord at C5-6 which may represent a tiny area of myelomalacia IMPRESSION: Moderate right paracentral disc herniation C5-6 Spondylosis C6-7 resulting in mild central spinal stenosis MRI brain: COMPARISON: Head CT February 14, 2018 TECHNIQUE: Axial, sagittal and coronal magnetic resonance images of the brain were obtained. Magnetic resonance angiography of the head and neck was performed. Source images were reviewed and reconstructed at 360 degrees rotation. FINDINGS: A 6 millimeter area of high signal on T1 weighted sequences is present within the quadrigeminal cistern compatible with a lipoma. No additional abnormal signal within the brain is seen. An extra-axial fluid collection is not noted. Diffusion weighted/ADC mapping does not reveal evidence of an acute infarction. Fluid within the sinuses/mastoids is not seen. . The common, internal and external carotid arteries do not demonstrate a significant stenosis. The vertebral arteries are unremarkable. The visualized anterior cerebral, middle cerebral, posterior cerebral, basilar and distal internal carotid arteries do not demonstrate a significant stenosis. An aneurysm is not seen IMPRESSION: No acute intracranial abnormality is seen. Unremarkable MRA head and neck CT scan brain: Unremarkable for acute changes. Carotid Doppler: No significant stenosis noted. Renal ultrasound: COMPARISON: None. FINDINGS: The right kidney measures 11.5 x 6.6 x 4.9 cm. The left kidney measures 11.7 x 5.6 x 4.7 cm. Cortical thickness is normal. Both kidneys show an increase in cortical echogenicity that can be seen with medical renal disease. No hydronephrosis or suspicious renal mass. A few punctate echogenic foci in each renal hilum noted. These are probably areas of echogenic fat rather than nonshadowing stones. No bladder wall thickening or mass. No intraluminal stone or mass. IMPRESSION: No hydronephrosis or suspicious renal mass. Increased renal cortical echogenicity suspicious for medical renal disease. - Problems (1) Weakness Onset Date: 02/15/18 Current Visit: Yes Status: Acute (2) Paresthesia Onset Date: 02/15/18 Current Visit: Yes Status: Acute (3) Radiculopathy Onset Date: 02/15/18 Current Visit: Yes Status: Acute (4) HTN (hypertension) Onset Date: 02/15/18 Current Visit: Yes Status: Chronic Qualifiers: Hypertension type: essential hypertension Qualified Code(s): I10 - Essential (primary) hypertension (5) Hiatal hernia with GERD Onset Date: 02/15/18 Current Visit: Yes Status: Chronic (6) Depression with anxiety Onset Date: 02/15/18 Current Visit: Yes Status: Chronic (7) RLS (restless legs syndrome) Onset Date: 02/15/18 Current Visit: Yes Status: Chronic (8) Chronic renal disease Onset Date: 02/15/18 Current Visit: Yes Status: Suspected Qualifiers: Chronic kidney disease stage: stage 2 (mild) Qualified Code(s): N18.2 - Chronic kidney disease, stage 2 (mild) (9) Cervical disc herniation Current Visit: Yes Status: Acute (10) Cervical spinal stenosis Current Visit: Yes Status: Acute (11) Hyperlipidemia Current Visit: Yes Status: Chronic Qualifiers: Hyperlipidemia type: unspecified Qualified Code(s): E78.5 - Hyperlipidemia , unspecified (12) GERD (gastroesophageal reflux disease) Current Visit: Yes Status: Chronic Qualifiers: Esophagitis presence: esophagitis presence not specified Qualified Code(s) : K21.9 - Gastro-esophageal reflux disease without esophagitis (13) Low testosterone Current Visit: Yes Status: Chronic Brief History of Present Illness: 47 yo CM presented to the ER with right upper and lower ext. weakness and numbness. This all started on Tuesday when he noted pain to the right arm and neck region. This would radiate to the right scapula. 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 He was doing a lot of pushing and lifting last week. His condition worsened. Patient denied any headaches, dizziness, chest pain or shortness of breath. Symptoms worsened so he came to the emergency room for evaluation. In the ER he was evaluated. Some numbness to the upper and lower right extremities were noted. He also reported some weakness. Initial CT of the head was unremarkable. Creatinine was slightly elevated. He was admitted for further evaluation. Patient with acute, hyperlipidemia, GERD with hiatal hernia, RLS, Depression. When I saw the patient his weakness had improved. No chest pain, SOB, or dizziness was noted. He reports a significant medical history of back surgery. Hospital Course: The patient was evaluated by neurology. MRI brain showed no significant acute changes for CVA. A 6 mm area of high signal within the quadrigeminal cistern compatible with a lipoma was noted. Carotid Doppler showed no significant stenosis. The patient was further assess with a C-spine MRI. MRI showed moderate right paracentral disc herniation to C5 through C6 was noted. Spondylosis to the C6-C7 resulting in mild central spinal stenosis noted. Neurology recommends that the patient see neuro surgery as an outpatient for decompression to the area. Patient will be provided information on neuro surgery physicians in the area. I will also recommend that he establish care with a local physician. Patient may follow up with neurology in 1-2 weeks to follow up this hospitalization. I will recommend no heavy lifting, pushing or pulling. Patient is not to be released to work until seen and evaluated by neuro surgery. Physical therapy recommends wheelchair, tub bench. Prescription for both will be provided. Patient was found to have some renal insufficiency. Patient likely has chronic renal disease. Medications have been adjusted. Will recommend no further use of nonsteroidal anti-inflammatories. Future mediation will need to be renally dosed. Renal ultrasound shows evidence of chronic renal disease is for the patient follow up with nephrology as an outpatient to further monitor and address. Recommendation is to recheck lab-BMP in 1 week to monitor his progress. Patient with history of hypertension. Patient has been taking herbal medication for this. I will recommend to discontinue Herbal medication for blood pressure. Blood pressure remained stable at this time. He is to monitor his blood pressures and record them daily. If his blood pressures remain above 140/90 consistently the patient may require medication. I will recommend to either beta-danika therapy or calcium channel danika. This can be further addressed by his PCP. Patient has GERD. He will continue with Prilosec 20 mg 1 pill once daily. Patient has hyperlipidemia. Patient may continue with Tricor 160 mg daily. Patient has depression with anxiety. Patient continue with Celexa 10 mg 1 pill once daily. Patient has low testosterone level. He is seen by urology. Patient may continue with his testosterone medication. Vital Signs/Physical Exam: Temp Pulse Resp BP Pulse Ox 97.5 F 62 18 135/71 96 02/15/18 08:00 02/15/18 08:00 02/15/18 08:00 02/15/18 08:00 02/15/18 08:00 General: Alert, In no apparent distress, Oriented x3, Cooperative HEENT: Atraumatic Neck: Supple Respiratory: Clear to auscultation bilaterally, Normal air movement Cardiovascular: Normal pulses, Regular rate/rhythm Gastrointestinal: Normal bowel sounds, Soft and benign, Non-distended, No masses , No rebound, No guarding Musculoskeletal: No tenderness, No warmth Neurological: Normal speech, Abnormal strength (Mild weakness to the right upper extremity. Some paresthesias noted to the right side) Laboratory Data at Discharge: WBC 7.2 K/uL (4.3-10.9) D 02/15/18 06:13 Hgb 14.2 g/dL (13.6-17.9) 02/15/18 06:13 Hct 41.7 % (39.6-49.0) 02/15/18 06:13 Plt Count 256 K/uL (152-406) 02/15/18 06:13 PT 11.3 SECONDS (9.5-12.5) 02/14/18 07:15 INR 0.96 02/14/18 07:15 APTT 33.2 SECONDS (24.3-36.9) 02/14/18 07:15 Sodium 142 mmol/L (136-145) 02/15/18 06:05 Potassium 4.3 mmol/L (3.5-5.1) 02/15/18 06:05 BUN 16 mg/dL (7-18) 02/15/18 06:05 Creatinine 1.20 mg/dL (0.55-1.3) 02/15/18 06:05 Glucose 105 mg/dL (74-106) 02/15/18 06:05 Magnesium 2.3 mg/dL (1.8-2.4) 02/15/18 06:05 Total Bilirubin 0.3 mg/dL (0.2-1.0) 02/14/18 07:15 AST 25 U/L (15-37) 02/14/18 07:15 ALT 32 U/L (12-78) 02/14/18 07:15 Alkaline Phosphatase 56 U/L (45-117) 02/14/18 07:15 Troponin I < 0.02 ng/mL (0.0-0.045) 02/15/18 00:25 Triglycerides 218 mg/dL (<150) H 02/14/18 13:56 Cholesterol 139 mg/dL (<200) 02/14/18 13:56 HDL Cholesterol 21 mg/dL (40-60) L 02/14/18 13:56 Cholesterol/HDL Ratio 6.62 02/14/18 13:56 Home Medications: Cholecalciferol (Vitamin D3) [D3-50] 50,000 unit PO DAILY 02/14/18 Citalopram [Celexa*] 10 mg PO BEDTIME 02/14/18 Fenofibrate [Tricor*] 160 mg PO BEDTIME 02/14/18 Melatonin 5 mg PO BEDTIME 02/14/18 Omeprazole 20 mg PO DAILY 02/14/18 Testosterone Cypionate [Testone Cik] 200 mg IM EVERY 7TH DAY 02/14/18 Zyxal 5 mg PO DAILY 02/14/18 Pregabalin [Lyrica*] 50 mg PO BID #60 cap 02/15/18 traMADol HCL [Ultram*] 50 mg PO TID PRN #20 tab 02/15/18 New Medications: Pregabalin [Lyrica*] 50 mg PO BID #60 cap traMADol HCL [Ultram*] 50 mg PO TID PRN #20 tab PRN Reason: Pain Mild Patient Discharge Instructions: 1. Patient will need to establish care with a PCP in the area to follow up this hospitalization and continue his care. 2. Patient presented with weakness and numbness to the right upper and lower extremity. Patient evaluated by neurology. MRI brain showed no significant acute changes for CVA. A 6 mm area of high signal within the quadrigeminal cistern compatible with a lipoma was noted. Carotid Doppler showed no significant stenosis. The patient was further assess with a C-spine MRI. MRI showed moderate right paracentral disc herniation to C5 through C6 was noted. Spondylosis to the C6-C7 resulting in mild central spinal stenosis noted. These findings correlate with physical exam. Neurology recommends that the patient see neuro surgery as an outpatient for decompression to the area. Patient will be provided information on neuro surgery physicians in the area. I will also recommend that he establish care with a local physician. Patient may follow up with neurology in 1-2 weeks to follow up this hospitalization. I will recommend no heavy lifting, pushing or pulling. Patient is not to be released to work until seen and evaluated by neuro surgery. Physical therapy recommends wheelchair, tub bench. Prescription for both will be provided. 3. Patient was found to have some renal insufficiency. Patient likely has chronic renal disease. Medications have been adjusted. Will recommend no further use of nonsteroidal anti-inflammatories. Future mediation will need to be renally dosed. Renal ultrasound shows evidence of chronic renal disease is for the patient follow up with nephrology as an outpatient to further monitor and address. Recommendation is to recheck lab-BMP in 1 week to monitor his progress. 4. Patient with history of hypertension. Patient has been taking herbal medication for this. I will recommend to discontinue Herbal medication for blood pressure. Blood pressure remained stable at this time. He is to monitor his blood pressures and record them daily. If his blood pressures remain above 140/90 consistently the patient may require medication. I will recommend to either beta-danika therapy or calcium channel danika. This can be further addressed by his PCP. 5. Patient has GERD. He will continue with Prilosec 20 mg 1 pill once daily. 6. Patient has hyperlipidemia. Patient may continue with Tricor 160 mg daily. 7. Patient has depression with anxiety. Patient continue with Celexa 10 mg 1 pill once daily. 8. Patient has low testosterone level. He is seen by urology. Patient may continue with his testosterone medication. Diet: AHA Activity: Fall precautions Time spent managing pt's care (in minutes): 55
--- NOTE | 2018-02-15 12:11 | ECHO ---
HEIGHT: 5 ft 9 in WEIGHT: 210 lb 0 oz DATE OF STUDY: 02/15/[address]: Lionel Ruffin DO 2-DIMENSIONAL: YES M.MODE: YES DOPPLER: YES COLOR FLOW: YES TDS: NO PORTABLE: NO DEFINITY: NO BUBBLE STUDY: NO DIAGNOSIS: HYPERTENSION, RIGHT SIDED PARESTHESIAS CARDIAC HISTORY: CATHERIZATION: NO SURGERY: NO PROSTHETIC VALVE: NO PACEMAKER: NO MEASUREMENTS (cm) DIASTOLIC (NORMALS) SYSTOLIC (NORMALS) IVSd 1.1 (0.6-1.2) LA Diam 3.5 (1.9-4.0) LVEF 65% LVIDd 4.5 (3.5-5.7) LVIDs 2.9 (2.0-3.5) %FS 35% LVPWd 1.1 (0.6-1.2) Ao Diam 3.0 (2.0-3.7) 2 DIMENSIONAL ASSESSMENT: RIGHT ATRIUM: NORMAL LEFT ATRIUM: NORMAL RIGHT VENTRICLE: NORMAL LEFT VENTRICLE: NORMAL TRICUSPID VALVE: NORMAL MITRAL VALVE: NORMAL PULMONIC VALVE: NORMAL AORTIC VALVE: NORMAL PERICARDIAL EFFUSION: NONE AORTIC ROOT: NORMAL LEFT VENTRICULAR WALL MOTION: DOPPLER/COLOR FLOW: MILD TRICUSPID REGURGITATION. COMMENTS: MILD TRICUSPID REGURGITATION. NORMAL RIGHT VENTRICULAR SYSTOLIC PRESSURE. NORMAL LEFT VENTRICULAR SIZE AND FUNCTION. NO ATRIAL SEPTAL DEFECT. NO VEGETATION OR THROMBUS. TECHNOLOGIST: Renae FORTE
[2018-02-15 12:44] VITALS: BP 140/80; TEMP 97.8
== END 2018-02-15 14:40 | disposition home or self-care (01) ==
LOC: ER 06:38 → INTOOBSV 08:39 → ERHOLD 08:39 → 4TH 10:19
PROVIDERS: ADMIT Family Medicine; ATTEND Family Medicine
DX: M50.123 Cervical disc disorder at C6-C7 level with radiculopathy (principal); R20.2 Paresthesia of skin; M48.02 Spinal stenosis, cervical region; K21.9 Gastro-esophageal reflux disease without esophagitis; K44.9 Diaphragmatic hernia without obstruction or gangrene; F41.8 Other specified anxiety disorders; G25.81 Restless legs syndrome; E78.5 Hyperlipidemia, unspecified; N28.9 Disorder of kidney and ureter, unspecified; I10 Essential (primary) hypertension; E29.1 Testicular hypofunction
CPT/HCPCS: 36415; 70450; 70544; 70549; 70553; 71045; 72141; 76770; 80048; 80061; 80076; 81003; 82550; 82553; 83735; 83880; 84439; 84443; 84484; 85025; 85610; 85730; 93005; 93306; 93880; 96361; 96374; 97163; 99285; G0378; J1650; J7030